=== PATIENT | male | born 1945 | race Caucasian/White ===

== ENCOUNTER 2021-09-17 04:14 | Emergency (ER) | payer MEDICARE, MEDICAID, SELFPAY ==
[2021-09-17] VITALS (14 sets, daily range): BP systolic 99–152; BP diastolic 66–101; PULSE 86–172; RESP 8–24; TEMP 36.7; O2SAT 95–100; BMI 34.0
--- NOTE | 2021-09-17 04:17 | XRR_ITS ---
PROCEDURE INFORMATION: Exam: XR Chest Exam date and time: 09/17/2021 4:17 AM Age: 76 years old Clinical indication: Pain; Chest pressure; Patient HX: Patient wearing zoll life vest that fired twice this morning and now is not working properly. ; Additional info: Cp TECHNIQUE: Imaging protocol: XR of the chest. Views: 1 view. COMPARISON: No relevant prior studies available. FINDINGS: Tubes, catheters and devices: Transcutaneous pacemaker defibrillator leads overlie the chest. EKG leads overlie the chest. Lungs: There are hazy opacities present in the right mid and lower hemithorax possibly representing atelectasis although a right basilar pneumonitis cannot be entirely excluded. Pleural spaces: Unremarkable. No pleural effusion. No pneumothorax. Heart/Mediastinum: Unremarkable. No cardiomegaly. Bones/joints: Unremarkable. XR/XR chest 1V portable [id number] IMPRESSION: Hazy opacities are seen right mid and lower hemithorax, findings that may represent atelectasis although a right basilar pneumonitis cannot be entirely excluded.
--- NOTE | 2021-09-17 04:19 | ECG_ITS ---
[facility] Test Date: 2021-09-17 Pat Name: VIRY SHANE Department: Room: Gender: Male Registered Nurse Post Partum: : 1945 Requested By: Efren Rivera Order Number: [id number] Andrew MD: Erica Blake M.D. Measurements Intervals [place] Rate: 92 P: 72 IL: 220 QRS: -39 QRSD: 121 T: 67 QT: 363 QTc: 450 Interpretive Statements SINUS RHYTHM WITH FIRST DEGREE AV BLOCK LEFT AXIS DEVIATION [QRS AXIS < -30] POSSIBLE RIGHT VENTRICULAR CONDUCTION DELAY [RSR (QR) IN V1/V2] NONSPECIFIC T-WAVE ABNORMALITY No previous ECG available for comparison Electronically Signed On 09-18-2021 17:11:01 SYSTEM SUPPORT TECHNICIAN by Erica Blake M.D. [id number]
--- NOTE | 2021-09-17 04:27 | ED_ITS ---
HPI - General Adult General: Chief complaint: General Medical Stated complaint: DEFIBILLATER Time Seen by Provider: 09/17/21 04:17 Source: patient and EMS Mode of arrival: EMS Limitations: no limitations History of Present Illness: HPI narrative: 76-year-old male who is here from local skilled nursing. 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 that I did shocked him 3 separate times in the last 24 hours with being to tonight. He states that he has had this feeling of a palpitation before then shocked. After the second shock tonight his LifeVest has a warning that is not working currently. He denies any chest pain currently denies any worsening improving factors. Associated symptoms: Reports chest pain; Deny dyspnea, headache(s), nausea, rash or vomiting Review of Systems Const: Denies: fever(s), chills, body aches or change in appetite Eyes: Denies: blurry vision or eye discomfort ENMT: Denies: throat pain or dental pain Card: Reports: chest pain Resp: Denies: dyspnea GI: Denies: abdominal pain, nausea, vomiting or diarrhea : Denies: dysuria Musc: Denies: neck pain or back pain Skin/Breast: Denies: rash Neuro: Denies: headache(s) Psych: Denies: depression Jorge/Lymph: Denies: easy bruising All/Imm: Denies: urticaria Physical Exam Const: COMMON NORMALS: no acute distress, patient oriented x3 and healthy appearing HENMT: COMMON NORMALS: normocephalic and atraumatic HEAD & SCALP: normocephalic and atraumatic Eye: COMMON NORMALS: Equal, round and reactive pupils present and EOMs intact bilaterally PUPIL: Yes Equal, round and reactive pupils present Neck/C-Spine: COMMON NORMALS: full ROM and supple Chest: COMMONS NORMALS: normal inspection of the chest and normal palpation of entire chest wall Resp: COMMON NORMALS: normal respiratory effort, No retractions, No use of accessory muscles and clear to auscultation bilaterally AUSCULTATION: clear to auscultation bilaterally Cardio: COMMON NORMALS: regular rate, regular rhythm and No murmurs present (Cardio) RATE: regular rate RHYTHM: regular rhythm GI: COMMON NORMALS: Normal to inspection, nondistended, normoactive bowel sounds present, Soft to palpation, non-tender and no masses PALPATION: Yes Soft to palpation Extremity: COMMON NORMALS: normal to inspection and full ROM Neuro: COMMON NORMALS: patient oriented x3, moves all extremities and no focal motor deficits Psych: COMMON NORMALS: mental status grossly normal, Normal thought process present and cooperative THOUGHT PROCESS: Normal thought process present Skin: COMMON NORMALS: no rashes or lesions noted and no wounds GENERAL SKIN EXAM: no rashes or lesions noted Course Vital Signs: Vital signs: Vital Signs Temperature 98.0 F 09/17/21 04:24 Pulse Rate 96 09/17/21 04:24 Respiratory Rate 18 09/17/21 04:24 Blood Pressure 112/78 09/17/21 04:24 Pulse Oximetry 98 09/17/21 04:24 MDM - General Adult MDM Narrative: Medical decision making narrative: Patient presents here from skilled nursing with his LifeVest going off multiple times patient's been well- appearing here I did speak to cardiology at [facility] and informed him of what is happening they want him to be transferred there if they can further investigate. Will transfer as he has established care in the past and also we are on cardiology divert at this time as well. Lab Data: Labs: Lab Results 09/17/21 09/17/21 09/17/21 04:27 04:27 04:27 WBC 6.6 10^3/uL 10^3/ uL (4.0-10.0) RBC 3.76 10^6/uL L 10 ^6/uL (4.1-5.3) Hgb 11.9 g/dL g/dL (11.7-16.6) Hct 35.8 % L % (42.0-52.0) MCV 95.2 fl H fl (80-94) MCH 31.6 pg pg (28.0-34.0) MCHC 33.2 g/dL g/dL (30.0-36.0) RDW 14.0 % % (12.1-15.1) Plt Count 257 10^3/cmm 10^3 /cmm (130-400) MPV 9.4 fL fL (7.4-10.4) Neut % (Auto) 57.5 % % Lymph % (Auto) 27.5 % % Cataño % (Auto) 10.7 % % Eos % (Auto) 2.7 % % Baso % (Auto) 0.5 % % Neut # (Auto) 3.77 10^3/uL 10^3 /uL (1.8-7.7) Lymph # (Auto) 1.8 10^3/uL 10^3/ uL (0.8-4.8) Cataño # (Auto) 0.7 10^3/uL 10^3/ uL (0.2-0.9) Eos # (Auto) 0.2 10^3/uL 10^3/ uL (0.0-0.8) Baso # (Auto) 0.0 10^3/uL 10^3/ uL (0.0-0.1) Nucleated RBC % (a uto) 0 % % Nucleated RBCs # 0.0 /100WBC /100W BC Sodium 138 mmol/L mmol/L (136-145) Potassium 3.8 mmol/L mmol/L (3.5-5.1) Chloride 103 mmol/L mmol/L (98-107) Carbon Dioxide 24 mmol/L mmol/L (22-29) Anion Gap 14.8 (5-19) BUN 20 mg/dL mg/dL (8-23) Creatinine 0.7 mg/dL mg/dL (0.7-1.2) GFR Calculation Not Reportable Glucose 109 mg/dL mg/dL (65-115) Calculated Osmolal ity 289 mOsm/kg mOsm/ kg (285-295) Calcium 6.6 mg/dL L mg/dL (8.5-10.5) Total Bilirubin 0.4 mg/dL mg/dL (0.15-1.2) AST 15 U/L U/L (0-40) ALT 13 U/L U/L (0-41) Alkaline Phosphata se 118 IU/L IU/L (40-130) Troponin T Baselin e 56 ng/L H ng/L (0-15) Total Protein 5.1 g/dL L g/dL (6.6-8.7) Albumin 2.6 g/dL L g/dL (3.5-5.2) Globulin 2.5 g/dL g/dL (1.3-4.6) EKG Data^: EKG 1: Attestation: I personally reviewed and interpreted this EKG as follows: EKG interpretation date: 09/17/21 EKG interpretation time: 04:18 Interpretation: nsr hr [address] or t wave abnormalities qrs 121 qtc 413 Computer generated interpretation: Chest X-Ray 09/17/21 04:17 IMPRESSION: Hazy opacities are seen right mid and lower hemithorax, findings that may represent atelectasis although a right basilar pneumonitis cannot be entirely excluded. Discharge Plan Discharge Patient Disposition: Xfer Short-Term Hosp Clinical Impression: Defibrillator discharge Condition: Stable Coding Level of Care Code ED Aligning Checker for Chg Fwd Exam Comprehensive
[2021-09-17 04:47] LABS: Basophils % 0.5 %; Eosinophils # 0.2 10^3/uL (0.0-0.8); Eosinophils % 2.7 %; Hematocrit 35.8 % (42.0-52.0); Hemoglobin 11.9 g/dL (11.7-16.6); Lymphocytes # 1.8 10^3/uL (0.8-4.8); Lymphocytes % 27.5 %; Mean Corpuscular HGB Conc 33.2 g/dL (30.0-36.0); Mean Corpuscular Hemoglobin 31.6 pg (28.0-34.0); Mean Corpuscular Volume 95.2 fl (80-94); Mean Platelet Volume 9.4 fL (7.4-10.4); Monocytes # 0.7 10^3/uL (0.2-0.9); Monocytes % 10.7 %; Neutrophils # 3.77 10^3/uL (1.8-7.7); Neutrophils % 57.5 %; Nucleated Red Blood Cells % 0 %; Platelet Count 257 10^3/cmm (130-400); Red Blood Count 3.76 10^6/uL (4.1-5.3); White Blood Count 6.6 10^3/uL (4.0-10.0)
[2021-09-17 05:01] LABS: Troponin(5th) Baseline 56 ng/L (0-15)
[2021-09-17 05:07] LABS: Alanine Aminotransferase 13 U/L (0-41); Albumin Level 2.6 g/dL (3.5-5.2); Alkaline Phosphatase 118 IU/L (40-130); Blood Urea Nitrogen 20 mg/dL (8-23); Calcium 6.6 mg/dL (8.5-10.5); Carbon Dioxide 24 mmol/L (22-29); Chloride 103 mmol/L (98-107); Globulin 2.5 g/dL (1.3-4.6); Glucose 109 mg/dL (65-115); Osmolality Calculated 289 mOsm/kg (285-295); Sodium 138 mmol/L (136-145); Total Bilirubin 0.4 mg/dL (0.15-1.2); Total Protein 5.1 g/dL (6.6-8.7)
--- NOTE | 2021-09-17 05:11 | PC.NURSE ---
patient assisted to bedside to urinate using urinal with no complications. patient placed back in bed on monitoring and evaluation advisor in no obvious distress. Side rails raised x 2 and bed in low, locked position. call light within reach.
[2021-09-17 05:13] LABS: Anion Gap 14.8 (5-19); Aspartate Amino Transferase 15 U/L (0-40); Potassium 3.8 mmol/L (3.5-5.1)
--- NOTE | 2021-09-17 06:07 | PC.NURSE ---
patient sleeping comfortablyi n bed at this time. patient in no obvious distress. even chest rise and fall noted. Patinet on compliance monitor. Side rails raised x 2 and bed in low, locked position. call light within reach.
--- NOTE | 2021-09-17 06:19 | ECG_ITS ---
[facility] Test Date: 2021-09-17 Pat Name: VIRY SHANE Department: Room: Gender: Male Sales Development Specialist: : 1945 Requested By: Efren Rivera Order Number: [id number] Andrew MD: Erica Blake M.D. Measurements Intervals [place] Rate: 86 P: 74 IA: 223 QRS: -36 QRSD: 120 T: 61 QT: 388 QTc: 464 Interpretive Statements SINUS RHYTHM WITH FIRST DEGREE AV BLOCK LEFT AXIS DEVIATION [QRS AXIS < -30] POSSIBLE RIGHT VENTRICULAR CONDUCTION DELAY [RSR (QR) IN V1/V2] No previous ECG available for comparison Electronically Signed On 09-18-2021 17:14:53 BRAND AMBASSADOR PROMOTIONAL MODEL by Erica Blake M.D. [id number]
--- NOTE | 2021-09-17 06:34 | PC.NURSE ---
patients repeat troponin drawn from IV and sent to lab. patient helped to stand at bedside and use urinal. Patient in no obvious distress. Patient on cardiac cath rn. awaiting room number at [facility].
[2021-09-17 06:50] LABS: Troponin 5 2HR 49.41 ng/L (0-15)
[2021-09-17 06:52] LABS: Troponin 5 2HR Delta -6.59 ABS# (0-10)
--- NOTE | 2021-09-17 07:16 | PC.NURSE ---
PT IS ON CONTINUOUS SPO2 NIBP AND CM.
--- NOTE | 2021-09-17 07:16 | PC.NURSE ---
WHILE AT BEDSIDE PT IS IN NAD. PT DENIES ANY FURTHER NEEDS AT THIS TIME.
--- NOTE | 2021-09-17 07:20 | PC.NURSE ---
PT PLACED ON PACER PADS AND CONNECTED TO ZOLL MONITOR/DEFIBRILLATOR
--- NOTE | 2021-09-17 07:25 | PC.NURSE ---
DR. WEBSTER AT BEDSIDE ASSESSING PT.
--- NOTE | 2021-09-17 07:28 | PC.NURSE ---
PT HR AT 163BPM PRESENTED TO BEDSIDE DELEGATED TO [facility] RN COMMUNITY TO PARAS WEBSTER.
[2021-09-17] MEDS: metoprolol tartrate 1 mg/1 mL SDV 5 mL 5 MG IVP (07:32)
--- NOTE | 2021-09-17 07:41 | PC.NURSE ---
SHOCK ADM AT 120J
--- NOTE | 2021-09-17 07:42 | PC.NURSE ---
HR TO 82 BPM AFTER SHOCK
--- NOTE | 2021-09-17 07:56 | PC.NURSE ---
DR. WEBSTER LEAVES BEDSIDE.
--- NOTE | 2021-09-17 08:28 | PC.NURSE ---
TWO ATTEMPTS TO CALL REPORT TO [facility] USING PHONE NUMBER [phone] AND [phone] NO ANSWER WAS INFORMED TO CALL BACK IN 20 MINUTES BY TRANSFER LINE.
--- NOTE | 2021-09-17 08:41 | PC.NURSE ---
WHILE AT BEDSIDE PT IS AWAKE AND TRACKING. PT DOES NOT VERBALIZE ANY NEEDS AT THIS TIME.
--- NOTE | 2021-09-17 09:30 | PC.NURSE ---
ATTEMPTED REPORT NURSE UNAVAILABLE.
--- NOTE | 2021-09-17 10:08 | PC.NURSE ---
report given to ems assumed care.
--- NOTE | 2021-09-17 10:19 | ECG_ITS ---
[facility] Test Date: 2021-09-17 Pat Name: VIRY SHANE Department: Room: Gender: Male Burner Technician: : 1945 Requested By: Efren Rivera Order Number: [id number] Andrew MD: Erica Blake M.D. Measurements Intervals [place] Rate: 90 P: 84 NE: 230 QRS: -37 QRSD: 117 T: 113 QT: 381 QTc: 466 Interpretive Statements SINUS RHYTHM WITH FIRST DEGREE AV BLOCK LEFT AXIS DEVIATION [QRS AXIS < -30] LOW QRS VOLTAGE IN PRECORDIAL LEADS [QRS DEFLECTION < 1.0 mV IN CHEST LEADS] POSSIBLE RIGHT VENTRICULAR CONDUCTION DELAY [RSR (QR) IN V1/V2] NONSPECIFIC T-WAVE ABNORMALITY Compared to ECG 09/17/2021 06:20:14 Low QRS voltage now present T-wave abnormality now present Electronically Signed On 09-18-2021 17:14:22 SAMPLER RADIOACTIVE WASTE by Erica Blake M.D. [id number]
--- NOTE | 2021-09-17 10:26 | ECG_ITS ---
[facility] Test Date: 2021-09-17 Pat Name: Aly Mcbride Department: Room: Gender: Male Pourer: : 1945 Requested By: Darius Phoenix Order Number: [id number] Andrew MD: Erica Blake M.D. Measurements Intervals [place] Rate: 163 P: [place]: QRS: -33 QRSD: 105 T: 72 QT: 293 QTc: 484 Interpretive Statements SUPRAVENTRICULAR TACHYCARDIA LEFT AXIS DEVIATION [QRS AXIS < -30] LOW QRS VOLTAGE IN PRECORDIAL LEADS [QRS DEFLECTION < 1.0 mV IN CHEST LEADS] NONSPECIFIC T-WAVE ABNORMALITY CRITICAL TEST RESULT Compared to ECG 09/17/2021 06:20:14 Low QRS voltage now present T-wave abnormality now present Sinus rhythm no longer present First degree AV block no longer present Electronically Signed On 09-18-2021 17:10:20 ADMINISTRATIVE LIAISON by Erica Blake M.D. [id number]
== END 2021-09-17 10:21 | disposition short-term general hospital (02) ==
PROVIDERS: Emergency Medicine; Emergency Provider Family Medicine
DX: T82.198A Other mechanical complication of other cardiac electronic device, initial encounter (principal); I47.1 Supraventricular tachycardia
CPT/HCPCS: 36415; 51702; 71045; 80053; 84484; 85025; 93005; 96374; 99291; J3490